=== PATIENT | male | born 1965 | race Caucasian/White ===

== ENCOUNTER 2016-12-14 17:48 | Emergency (ER) | payer BC ==
[2016-12-14] MEDS ORDERED: Sodium Chloride 0.9% 2.5 ML Syringe FLUSH PRN (17:57)
[2016-12-14] MEDS ORDERED: Sodium Chloride 0.9% 10 ML Syringe FLUSH PRN (17:57)
[2016-12-14] MEDS ORDERED: Aspirin 81 MG Tab.Chew PO ONE (18:11)
--- NOTE | 2016-12-14 18:16 | EDM.PDOC ---
ED HPI GENERAL MEDICAL PROBLEM - General Chief Complaint: Chest Pain Stated Complaint: CHEST PAIN Time Seen by Provider: 12/14/16 18:12 Source of Information: Reports: Patient History Limitations: Reports: No Limitations - History of Present Illness INITIAL COMMENTS - FREE TEXT/NARRATIVE: HISTORY AND PHYSICAL: History of present illness: 51-year-old male presents to the emergency room today with complaints of chest pain. Reports he has had intermittent chest pain for the past 3 weeks. Today he was leaning over to help his brother and had a brief episode of midsternal chest pain that was nonradiating. Since the pain is worse today he felt he needed to be evaluated in the emergency room. Patient is currently pain-free. Denies any shortness of breath, diaphoresis, nausea, or abdominal pain. Reports he has not seen a primary care provider in the last several years. Denies any medical problems and does not take any prescribed or over-the- counter medications. Denies any family history of heart disease. Review of systems: As per history of present illness and below otherwise all systems reviewed and negative. Past medical history: As per history of present illness and as reviewed below otherwise noncontributory. Surgical history: As per history of present illness and as reviewed below otherwise noncontributory. Social history: No reported history of drug or alcohol abuse. Family history: As per history of present illness and as reviewed below otherwise noncontributory. Physical exam: Gen.: Nontoxic appearing 51-year-old male. Able to speak in full sentences without shortness of breath. There is questions appropriately. Alert and oriented 3 HEENT: Atraumatic, normocephalic, pupils reactive, negative for conjunctival pallor or scleral icterus, mucous membranes moist, throat clear, neck supple, nontender, trachea midline. Lungs: Clear to auscultation, breath sounds equal bilaterally, chest nontender. Heart: S1S2, regular, negative for clicks, rubs, or JVD. Abdomen: Soft, obese, nondistended, nontender. Negative for masses or hepatosplenomegaly. Negative for costovertebral tenderness. Pelvis: Stable nontender. Genitourinary: Deferred. Rectal: Deferred. Extremities: Atraumatic, negative for cords or calf pain. Neurovascular unremarkable. +1 pitting edema to lower extremities bilaterally. Neuro: Awake, alert, oriented. Cranial nerves II through XII unremarkable. Cerebellum unremarkable. Motor and sensory unremarkable throughout. Exam nonfocal. Clinical findings were discussed with patient at length. Offered admission and risks versus benefits were reviewed with patient. She declined mission at this time as he would like to follow-up with his primary care provider tomorrow. Patient has an appointment with Dr. Cantu 12/15/16 in the morning. Informed patient that if his chest pain should return he should return to the emergency room for further evaluation. Patient is agreeable. Diagnostics: CBC, CMP, troponin, EKG, one view chest Therapeutics: Aspirin front desk monitor Impression: Chest pain Plan: 1. Please attend your appointment that you have tomorrow with Dr. Salazar. 2. Start a Aspirin 81mg once daily. 3. Return to the emergency room as needed as discussed Definitive disposition and diagnosis as appropriate pending reevaluation and review of above. Onset: Other (3 weeks, worse today) Location: Reports: Chest Quality: Reports: Pressure Left Chest Pain Score (Numeric/FACES): 3 - Related Data Allergies Allergy/AdvReac Type Severity Reaction Status Date / Time No Known Allergies Allergy Verified 12/14/16 17:58 Home Meds: Home Meds . [No Known Home Meds] 12/14/16 [History] Past Medical History Genitourinary History: Reports: Renal Calculus Musculoskeletal History: Reports: Back Pain, Chronic Other Musculoskeletal History: achilles tendon repair, RFK (nerve cautery for back pain) - Infectious Disease History Infectious Disease History: Reports: Chicken Pox Social & Family History - Family History Family Medical History: Noncontributory - Tobacco Use Smoking Status *Q: Current Every Day Smoker Years of Tobacco use: 40 Packs/Tins Daily: 0.2 - Caffeine Use Caffeine Use: Reports: Coffee - Alcohol Use Days Per Week of Alcohol Use: 1 - Recreational Drug Use Recreational Drug Use: No Drug Use in Last 12 Months: No ED ROS GENERAL - Review of Systems Review Of Systems: ROS reveals no pertinent complaints other than HPI. ED EXAM, GENERAL - Physical Exam Exam: See Below (See dictation) EKG INTERPRETATION EKG Date: 12/14/16 Time: 17:53 Rhythm: NSR Comparison: NA - No Prior EKG Course - Vital Signs Last Recorded V/S: Last Vital Signs Temp 36.3 C 12/14/16 17:54 Pulse 94 12/14/16 19:01 Resp 20 12/14/16 19:01 BP 125/71 12/14/16 19:01 Pulse Ox 94 L 12/14/16 19:01 - Orders/Labs/Meds Orders: Active Orders 24 hr Category Date Time Status Cardiac Monitoring [RC] . DIRECTED Care 12/14/16 17:57 Active EKG Documentation Completion [RC] STAT Care 12/14/16 17:57 Active Chest 1V Frontal [CR] Stat Exams 12/14/16 17:57 Taken Sodium Chloride 0.9% [Saline Flush] Med 12/14/16 17:57 Active 10 ml FLUSH ASDIRECTED PRN Sodium Chloride 0.9% [Saline Flush] Med 12/14/16 17:57 Active 2.5 ml FLUSH ASDIRECTED PRN Saline Lock Insert [OM.PC] Stat Oth 12/14/16 17:57 Ordered Medication Orders Sodium Chloride (Saline Flush) 10 ml FLUSH ASDIRECTED PRN PRN Reason: Keep Vein Open Last Admin: 12/14/16 18:27 Dose: 10 ml Sodium Chloride (Saline Flush) 2.5 ml FLUSH ASDIRECTED PRN PRN Reason: Keep Vein Open Last Admin: 12/14/16 18:27 Dose: 2.5 ml Labs: Laboratory Tests 12/14/16 12/14/16 12/14/16 Range/Units 18:23 18:23 18:23 WBC 16.67 H (4.0-11.0) K/uL RBC 5.28 (4.50-5.90) M/uL Hgb 16.5 (13.0-17.0) g/dL Hct 48.4 (38.0-50.0) % MCV 91.7 (80.0-98.0) fL MCH 31.3 (27.0-32.0) pg MCHC 34.1 (31.0-37.0) g/dL RDW Std Deviation 47.1 (28.0-62.0) fl RDW Coeff of Mindi 14 (11.0-15.0) % Plt Count 199 (150-400) K/uL MPV 10.50 (7.40-12.00) fL Neut % (Auto) 68.3 (48.0-80.0) % Lymph % (Auto) 23.8 (16.0-40.0) % [place] % (Auto) 6.7 (0.0-15.0) % Eos % (Auto) 0.9 (0.0-7.0) % Baso % (Auto) 0.3 (0.0-1.5) % Neut # (Auto) 11.4 H (1.4-5.7) K/uL Lymph # (Auto) 4.0 H (0.6-2.4) K/uL [place] # (Auto) 1.1 H (0.0-0.8) K/uL Eos # (Auto) 0.2 (0.0-0.7) K/uL Baso # (Auto) 0.1 (0.0-0.1) K/uL Nucleated RBC % 0.0 /100WBC Nucleated RBCs # 0 K/uL Sodium 143 (136-146) mmol/L Potassium 4.1 (3.5-5.1) mmol/L Chloride 107 (98-110) mmol/L Carbon Dioxide 24 (21-31) mmol/L BUN 17 (6.0-23.0) mg/dL Creatinine 1.2 (0.6-1.5) mg/dL Est Cr Clr Drug Dosing 74.66 mL/min Estimated GFR (MDRD) > 60.0 ml/min Glucose 145 H (60-110) mg/dL Calcium 9.3 (8.8-10.8) mg/dL Total Bilirubin 0.5 (0.1-1.5) mg/dL AST 14 (5-40) IU/L ALT 20 (8-54) IU/L Alkaline Phosphatase 104 (40-150) Troponin I < 0.10 (0.0-0.29) NG/ML Total Protein 6.8 (6.0-8.0) g/dL Albumin 4.1 (3.5-5.0) g/dL Globulin 2.7 (2.0-3.5) g/dL Albumin/Globulin Ratio 1.5 (1.3-2.8) Meds: Medications Generic Name Dose Route Start Last Admin Trade Name Freq PRN Reason Stop Dose Admin Sodium Chloride 10 ml 12/14/16 17:57 12/14/16 18:27 Saline Flush FLUSH 10 ml ASDIRECTED PRN Administration Keep Vein Open Sodium Chloride 2.5 ml 12/14/16 17:57 12/14/16 18:27 Saline Flush FLUSH 2.5 ml ASDIRECTED PRN Administration Keep Vein Open Discontinued Medications Generic Name Dose Route Start Last Admin Trade Name Ileana PRN Reason Stop Dose Admin Aspirin 324 mg 12/14/16 18:11 12/14/16 18:29 Aspirin PO 12/14/16 18:12 324 mg ONETIME ONE Administration Departure - Departure Time of Disposition: 19:43 Disposition: Home, Self-Care 01 Condition: Good Clinical Impression: Chest pain Qualifiers: Chest pain type: unspecified Qualified Code(s): R07.9 - Chest pain, unspecified Forms: ED Department Discharge Additional Instructions: The following information is given to patients seen in the emergency department who are being discharged to home. This information is to outline your options for follow-up care. We provide all patients seen in our emergency department with a follow-up referral. The need for follow-up, as well as the timing and circumstances, are variable depending upon the specifics of your emergency department visit. If you don't have a primary care physician on staff, we will provide you with a referral. We always advise you to contact your personal physician following an emergency department visit to inform them of the circumstance of the visit and for follow-up with them and/or the need for any referrals to a consulting specialist. The emergency department will also refer you to a specialist when appropriate. This referral assures that you have the opportunity for followup care with a specialist. All of these measure are taken in an effort to provide you with optimal care, which includes your followup. Under all circumstances we always encourage you to contact your private physician who remains a resource for coordinating your care. When calling for followup care, please make the office aware that this follow-up is from your recent emergency room visit. If for any reason you are refused follow-up, please contact the [facility] emergency department at and asked to speak to the emergency department charge nurse. [facility] [address] [place] [id number] 1. Please attend your appointment that you have tomorrow with Dr. Salazar. 2. Start a Aspirin 81mg once daily. 3. Return to the emergency room as needed as discussed - My Orders Last 24 Hours: My Active Orders 12/14/16 17:57 Cardiac Monitoring [RC] . DIRECTED EKG Documentation Completion [RC] STAT Chest 1V Frontal [CR] Stat Sodium Chloride 0.9% [Saline Flush] 10 ml FLUSH ASDIRECTED PRN Sodium Chloride 0.9% [Saline Flush] 2.5 ml FLUSH ASDIRECTED PRN Saline Lock Insert [OM.PC] Stat - Assessment/Plan Last 24 Hours: My Active Orders 12/14/16 17:57 Cardiac Monitoring [RC] . DIRECTED EKG Documentation Completion [RC] STAT Chest 1V Frontal [CR] Stat Sodium Chloride 0.9% [Saline Flush] 10 ml FLUSH ASDIRECTED PRN Sodium Chloride 0.9% [Saline Flush] 2.5 ml FLUSH ASDIRECTED PRN Saline Lock Insert [OM.PC] Stat
[2016-12-14 18:58] LABS: CHLORIDE,CL 107 mmol/L (98-110); SODIUM,NA 143 mmol/L (136-146)
[2016-12-15 00:52] VITALS: BP 124/68
--- NOTE | 2016-12-15 13:32 | CR ---
EXAM DATE: 12/14/16 PATIENT'S AGE: 51 Patient: PAULINA MEDINA Facility: [place], [place] Site . Site : [id number] Study: XRay Chest [id number]/29/2017 6:37:55 PM Ordering Physician: Doctor Cuenca Final Report: INDICATION: chest pain TECHNIQUE: Chest 1 view COMPARISON: July 06, 2012. FINDINGS: Cardiovascular and mediastinum: Heart size and vasculature are normal in caliber and appearance. Mediastinum is within normal limits. Lungs and pleural space: No focal consolidation. No sign of pleural effusion. No pneumothorax. Bones and soft tissues: No significant findings. IMPRESSION: No acute cardiopulmonary disease. Dictated by Misael Victoria MD @ 12/14/2016 7:28:32 PM Dictated by: Misael Victoria MD @ 12/14/2016 19:28:51 (Electronic Signature) Report Signed by Proxy. GUTH[facility]NING HOSPITALJayson
== END 2016-12-14 19:57 | disposition home or self-care (01) ==
LOC: MW.ED 17:48
DX: R07.2 Precordial pain (principal); F17.210 Nicotine dependence, cigarettes, uncomplicated; Z87.442 Personal history of urinary calculi; Z98.890 Other specified postprocedural states
CPT/HCPCS: 71010; 80053; 84484; 85025; 93005; 99284; A9270

== ENCOUNTER 2017-01-27 10:51 | Day surgery (SDC) | payer BC ==
[~2017-01-27 10:51] MED LIST: Betamethasone Acetate/Betamethasone Sod Phosphate 30 MG/5 ML MDV ONE; Iopamidol 408 MG/ML 50 ML SDV ONE; Lidocaine 2% 5 ML SDV ONE; Ropivacaine 0.5% 5 MG/ML 30 ML SDV ONE
--- NOTE | 2017-01-27 15:38 | OR ---
SURGEON: Cassandra Hilario D.O. DATE OF PROCEDURE: 01/27/2017 OR STAFF PRESENT: 1. Kevin Montes RN. 2. Rosmery Zurita RN. 3. Rafiq Collins RT. WOUND CLASSIFICATION: I. PREOPERATIVE DIAGNOSES: 1. Lumbar degenerative disk disease. 2. Chronic low back pain. 3. Lumbar facet arthropathy. POSTOPERATIVE DIAGNOSES: 1. Lumbar degenerative disk disease. 2. Chronic low back pain. 3. Lumbar facet arthropathy. PROCEDURES PERFORMED: 1. Right L3, L4, L5 and left L3, L4, L5 radiofrequency ablation. 2. Fluoroscopic guidance for needle placement. 3. Local with oral Valium for sedation. JOINTS FOR RADIOFREQUENCY ABLATION: Bilateral L4-5 and L5-S1 zygapophyseal joint. SCREENING QUESTIONS: The patient answered "No" to all the followin. Are you allergic to iodine, Betadine or latex? 2. Do have a bleeding disorder? 3. Are you on any anti-inflammatories or blood thinners? 4. Do you have any current local or systemic infections? RESPONSE TO LAST PROCEDURE: The patient reports greater than 80-90% pain reduction lasting the duration of the previous diagnostic medial branch blocks. MEDICAL NECESSITY: This procedure is being performed in accordance with the national guidelines as written by the [employer], [employer]. Please see medical necessity note attached. DESCRIPTION OF PROCEDURE: The patient had the procedure thoroughly explained including all possible risks, benefits and alternatives. A consent was signed in my clinic indicating understanding and willingness to proceed. The patient presented to [facility] and was escorted to the dressing room to disrobe and change into a hospital gown. Preoperative vital signs were taken. The patient reported taking Valium 10 milligrams at home prior to the procedure. The patient was brought to the procedure room and placed in the prone position on the procedure room table. A pillow was placed under the hips in order to flatten the lumbar lordosis. The back was prepped with ChloraPrep times three and sterilely draped. All personnel in the operating room were dressed in appropriate attire including surgical scrubs, head and shoe covers. This was to ensure sterility while in the treatment room. During the time fluoroscopy was in use all personnel in the operating room wore lead ritchie with thyroid collars. Sterile technique was used during the procedure. The skin overlying the target nerves were anesthetized with 2% Lidocaine Preservative-Free in a sterile 27-gauge 1.5 inch needle. The deep tissues were likewise infiltrated. Standard insulated radiofrequency probe needles with 10 millimeter active tips were inserted at the appropriate sites for the left L3, L4 and L5 dorsal ramus nerves and right L3, L4 and L5 dorsal ramus nerves for radiofrequency ablation. Proper placement was determined both fluoroscopically and with test stimulation at each primary site with 50 hertz for sensory and 2 hertz for motor stimulation. No radicular stimulation was identified and no distal motor activity was noted in the lower extremities. Radiofrequency denervation was performed at each site for 90 seconds at 80 degrees centigrade and repeated times two. The patient's nerves were numbed with a mixture of 12 milligrams of Celestone and 3 cubic centimeters of 2% Lidocaine and 3 cubic centimeters of 0.5% Ropivacaine. This was done for patient comfort prior to lesioning; 1 cubic centimeter total was injected at each site. Then the radiofrequency ablation needles were advanced under direct fluoroscopy and viewed in AP and oblique views. Stimulatory patterns were found to be excellent. Each nerve was lesioned twice. The patient tolerated the procedure well and had no complications. The vital signs were stable during and after the procedure. The staff escorted the patient to the recovery room area and the patient was released in stable condition after a brief stay in the recovery room monitored by the nurse. The patient was given both oral and written discharge and follow up instructions. The patient understands and knows to contact the office if there are any questions or concerns in the meantime. The patient has an appointment to follow up in 3 weeks. PREOPERATIVE PAIN: 11/25. POSTOPERATIVE PAIN: 04/27. FOLLOWUP: Follow up in the pain clinic in 1 month. NAIF / ANDRE /[id number]
== END 2017-01-27 13:30 | disposition home or self-care (01) ==
LOC: MW.SDS 10:51
PROVIDERS: ATTEND Anesthesiology
DX: G89.4 Chronic pain syndrome (principal); M51.36 Other intervertebral disc degeneration, lumbar region; M48.8X6 Other specified spondylopathies, lumbar region; M19.019 Primary osteoarthritis, unspecified shoulder; M46.98 Unspecified inflammatory spondylopathy, sacral and sacrococcygeal region; M75.41 Impingement syndrome of right shoulder; M79.1 Myalgia; Z79.899 Other long term (current) drug therapy; Z98.890 Other specified postprocedural states; Z87.891 Personal history of nicotine dependence
CPT/HCPCS: 64635; 64636; J0702; J2795; Q9966

== ENCOUNTER 2021-05-11 08:03 | Emergency (ER) | payer BC ==
[2021-05-11] MEDS ORDERED: Sodium Chloride 0.9% 2.5 ML Syringe FLUSH PRN (08:24)
[2021-05-11] MEDS ORDERED: Sodium Chloride 0.9% 1,000 ML IV ONE (08:24)
[2021-05-11] MEDS ORDERED: Ketorolac 30 MG/ML SDV IVPUSH ONE (08:24)
[2021-05-11] MEDS ORDERED: Ondansetron 4 MG/2 ML SDV IVPUSH ONE (08:24)
[2021-05-11] MEDS ORDERED: Sodium Chloride 0.9% 10 ML Syringe FLUSH PRN (08:24)
[2021-05-11 10:24] LABS: BLOOD UREA NITROGEN,BUN 14 mg/dL (7.0-18.0); CARBON DIOXIDE,CO2 26.2 mmol/L (21.0-32.0); CHLORIDE,CL 105 mmol/L (98-107); GLUCOSE RANDOM 137 mg/dL (74-106); LIPASE 52 U/L (73-393); POTASSIUM,K 4.5 mmol/L (3.5-5.1); SODIUM,NA 139 mmol/L (136-148)
[2021-05-11] MEDS ORDERED: Acetaminophen 325 MG/10.15 ML ML PO ONE (11:04)
[2021-05-11 15:02] VITALS: BP 138/71; PULSE 83
== END 2021-05-11 12:01 | disposition home or self-care (01) ==
LOC: MW.ED 08:03
DX: N20.0 Calculus of kidney (principal)
CPT/HCPCS: 36415; 71046; 74176; 80053; 81003; 83690; 85025; 96374; 96375; 99284; J1885; J2405; J7030

== ENCOUNTER 2024-04-21 13:22 | Day surgery (SDC) | payer BC ==
[2024-04-21] MEDS: Sodium Chloride 0.9% 1,000 ML IV ONE (15:25)
[2024-04-21] MEDS: Morphine 4 MG/ML Syringe IVPUSH ONE (15:38)
[2024-04-21 15:39] LABS: APPEARANCE,URINE CLEAR; BILIRUBIN,URINE NEGATIVE (NEGATIVE); COLOR,URINE YELLOW; GLUCOSE,URINE 100 mg/dL (NEGATIVE); KETONES,URINE NEGATIVE (NEGATIVE); LEUKOCYTE ESTERASE,URINE NEGATIVE (NEGATIVE); NITRITE,URINE NEGATIVE (NEGATIVE); OCCULT BLOOD,URINE NEGATIVE (NEGATIVE); PROTEIN,URINE NEGATIVE (NEGATIVE)
[2024-04-21] MEDS: Ondansetron 4 MG/2 ML SDV IVPUSH ONE (15:40)
[2024-04-21 15:43] LABS: BASOPHILS ABSOLUTE AUTO 0.05 K/uL (0.00-0.20); BASOPHILS PERCENT AUTO 0.4 % (0.0-1.0); EOSINOPHILS ABSOLUTE AUTO 0.17 K/uL (0.00-0.45); EOSINOPHILS PERCENT AUTO 1.2 % (0.0-6.0); HEMATOCRIT 47.3 % (42.0-52.0); IMMATURE GRAN ABSOLUTE AUTO 0.04 K/uL (0.00-0.05); IMMATURE GRAN PERCENT AUTO 0.3 % (0.0-0.4); LYMPHOCYTES ABSOLUTE AUTO 3.38 K/uL (1.00-4.80); LYMPHOCYTES PERCENT AUTO 23.8 % (24.0-44.0); MEAN CORPUSCULAR HEMOGLOBIN 31.6 pg (28.0-32.0); MEAN CORPUSCULAR HGB CONC 33.8 g/dL (32.0-36.0); MEAN CORPUSCULAR VOLUME 93.5 fL (83.0-99.0); MEAN PLATELET VOLUME 10.2 fL (9.4-12.4); MONOCYTES ABSOLUTE AUTO 0.98 K/uL (0.00-0.80); MONOCYTES PERCENT AUTO 6.9 % (0.0-8.0); NEUTROPHILS ABSOLUTE AUTO 9.57 K/uL (1.80-7.70); NEUTROPHILS PERCENT AUTO 67.4 % (41.0-71.0); PLATELET COUNT,PLT 192 K/uL (150-400); RED BLOOD CELL COUNT 5.06 M/uL (4.52-5.90); WHITE BLOOD CELL COUNT,WBC 14.19 K/uL (3.9-11.3)
[2024-04-21 16:01] LABS: A/G RATIO 1.1 (0.9-1.6); ALBUMIN 3.6 g/dL (3.4-5.0); BILIRUBIN TOTAL 0.3 mg/dL (0.2-1.0); CALCIUM 8.9 mg/dL (8.5-10.1); CARBON DIOXIDE,CO2 30.8 mmol/L (21.0-32.0); CREATININE 1.2 mg/dL (0.8-1.3); EST CRCL DRUG DOSING (CG) 67.59 mL/min; POTASSIUM,K 4.5 mmol/L (3.5-5.1)
[2024-04-21] MEDS: Iopamidol 755 MG/ML 500 ML Multipack Bottle IVPUSH STA (16:55)
[2024-04-21] MEDS: Ertapenem 1 GM in Sodium Chloride 0.9% 50 ML IV ONE (17:48)
[2024-04-21] MEDS ORDERED: Rocuronium Bromide 50 MG/5 ML Syringe ONE ×2 (19:04→20:03)
[2024-04-21] MEDS ORDERED: Propofol 200 MG/20 ML SDV ONE (19:04)
[2024-04-21] MEDS ORDERED: fentaNYL 100 MCG/2 ML SDV ONE ×2 (19:04→20:32)
[2024-04-21] MEDS ORDERED: dexmedeTOMIDine HCl 200 MCG/2 ML SDV ONE (19:04)
[2024-04-21] MEDS ORDERED: Sodium Chloride 0.9% 20 ML ONE (19:05)
[2024-04-21] MEDS ORDERED: Bupivacaine 0.5% 30 ML SDV ONE (19:11)
[2024-04-21] MEDS ORDERED: Bupivacaine 0.25% 30 ML SDV ONE (19:17)
[2024-04-21] MEDS ORDERED: Dexamethasone 4 MG/ML 5 ML MDV ONE (19:53)
[2024-04-21] MEDS ORDERED: Ondansetron 4 MG/2 ML SDV ONE (19:53)
[2024-04-21] MEDS ORDERED: Ketorolac 30 MG/ML SDV ONE (20:27)
[2024-04-21] MEDS ORDERED: Sugammadex Sodium 200 MG/2 ML VIAL IV ONE (20:27)
[2024-04-21] MEDS ORDERED: Ondansetron 4 MG/2 ML SDV IVPUSH PRN (20:59)
[2024-04-21] MEDS ORDERED: Acetaminophen/HYDROcodone 325-5 MG Tab PO PRN (20:59)
[2024-04-21] MEDS ORDERED: Naloxone 0.4 MG/ML SDV IVPUSH PRN (20:59)
[2024-04-21] MEDS: HYDROmorphone 1 MG/ML Syringe IVPUSH PRN (22:07)
[2024-04-22] MEDS: Sodium Chloride 0.9% 1,000 ML IV SCH (01:46)
[2024-04-22 07:37] VITALS: BP 137/66; PULSE 73
[2024-04-22] MEDS: Glimepiride 2 MG Tab PO SCH (10:26)
[2024-04-22] MEDS: metFORMIN 500 MG Tab.ER PO SCH (10:27)
[2024-04-22] MEDS: Allopurinol 300 MG Tab PO SCH (10:27)
== END 2024-04-22 11:00 | disposition home or self-care (01) ==
LOC: MW.ED 13:22 → MW.SDS 18:41 → MW.MS 18:41 → MW.SDS 19:43
PROVIDERS: ATTEND Surgery
DX: K35.80 Unspecified acute appendicitis (principal); E11.9 Type 2 diabetes mellitus without complications; F17.210 Nicotine dependence, cigarettes, uncomplicated; Z79.84 Long term (current) use of oral hypoglycemic drugs; Z79.899 Other long term (current) drug therapy
CPT/HCPCS: 36415; 44970; 64488; 74177; 80053; 81003; 82947; 83690; 85025; 96361; 96365; 96375; 99285; J0131; J0665; J1100; J1171; J1335; J1885; J2270; J2405; J2704; J3010; J3490; J7030; Q9967; 00840; 64486; 99284

== ENCOUNTER 2025-01-09 08:47 | Day surgery (SDC) | payer BC ==
[~2025-01-09 08:47] MED LIST changes: +Albuterol 0.083% 2.5 MG/3 ML Neb Soln NEB PRN; -Betamethasone Acetate/Betamethasone Sod Phosphate 30 MG/5 ML MDV ONE; -Iopamidol 408 MG/ML 50 ML SDV ONE; -Lidocaine 2% 5 ML SDV ONE; +Midazolam 1 MG/ML 2 ML SDV ONE; +Naloxone 0.4 MG/ML SDV IVPUSH PRN; +Ondansetron 4 MG/2 ML SDV IVPUSH PRN; +Propofol 200 MG/20 ML SDV ONE; -Ropivacaine 0.5% 5 MG/ML 30 ML SDV ONE; +ceFAZolin 3 GM in Water For Injection, Sterile 30 ML IVPUSH ONE; +fentaNYL 100 MCG/2 ML SDV ONE; +fentaNYL 50 MCG/ML SDV IVPUSH PRN
[2025-01-09] MEDS ORDERED: Bupivacaine 0.5%/EPINEPHrine 1:200,000 30 ML SDV ONE (08:58)
[2025-01-09] MEDS: Lactated Ringers 1,000 ML IV SCH (09:38)
[2025-01-09] MEDS ORDERED: Ondansetron 4 MG/2 ML SDV ONE (10:27)
[2025-01-09] MEDS ORDERED: Ketorolac 30 MG/ML SDV ONE (10:27)
[2025-01-09 12:57] VITALS: BP 141/64; PULSE 70
== END 2025-01-09 12:16 | disposition home or self-care (01) ==
LOC: MW.SDS 08:47
PROVIDERS: ATTEND Orthopaedic Surgery
DX: S83.231A Complex tear of medial meniscus, current injury, right knee, initial encounter (principal); M22.41 Chondromalacia patellae, right knee; I10 Essential (primary) hypertension; E66.01 Morbid (severe) obesity due to excess calories; E10.9 Type 1 diabetes mellitus without complications; Z68.41 Body mass index [BMI] 40.0-44.9, adult; Z79.84 Long term (current) use of oral hypoglycemic drugs; Z87.891 Personal history of nicotine dependence; Z79.899 Other long term (current) drug therapy
CPT/HCPCS: 29881; J0690; J1885; J2003; J2250; J2405; J2704; J3010; J7120; 01400; J0665